=== PATIENT | male | born 1975 | race Caucasian/White ===

== ENCOUNTER 2024-05-17 12:07 | Emergency (ER) | payer BC ==
[2024-05-17 12:49] LABS: Absolute Basophils 0.1 K/uL (0-0.5); Absolute Eosinophils 0.1 K/uL (0-0.5); Absolute Lymphocytes (CBC) 1.4 K/uL (0.7-4.9); Absolute Monocytes 0.6 K/uL (0.1-1.3); Absolute Neutrophil 6.4 K/uL (1.8-8.0); Basophils % 0.9 % (0-1.3); Eosinophils % 1.4 % (0-4.4); Hematocrit 42.7 % (39.6-49.0); Hemoglobin 14.3 g/dL (13.6-17.9); Lymphocytes % 16.5 % (15.3-44.8); MCH 30.4 pg (27.0-35.0); MCHC 33.6 g/dL (32.0-36.0); MCV 90.5 fL (80-100); Monocytes % 7.3 % (3.3-12.3); Neutrophils % 73.9 % (41.7-73.7); Platelets 239 thou/uL (152-406); RBC Red Blood Cell Count 4.72 M/uL (4.33-5.43); Red Cell Distribution Width 13.8 % (12.1-15.2)
[2024-05-17 12:51] LABS: PT Prothrombin Time 11.3 SECONDS (9.4-12.5); Protime INR 1.01
[2024-05-17] MEDS ORDERED: MORPHINE 4 MG/ML SYR ONE (12:58)
[2024-05-17 13:03] LABS: Anion Gap 7.7 mEq/L (5.0-15.0); BUN Blood Urea Nitrogen 10 mg/dL (7-18); Bicarbonate 24 mEq/L (21-32); Glomerular Filtration Rate 107 ml/min (=/>90); Glucose Level 83 mg/dL (74-106); NT PRO-BNP 60 pg/mL (<125); Potassium 3.7 mEq/L (3.5-5.1); Sodium Level 140 mEq/L (136-145)
[2024-05-17 13:04] LABS: Troponin High Sensitivity < 3.0 pg/mL (<58.9)
--- NOTE | 2024-05-17 13:43 | RAD REPORT ---
EXAMINATION: ONE VIEW CHEST XR CLINICAL INDICATION: CHEST PAIN TECHNIQUE: Frontal chest projection is submitted. Examination is limited by patient positioning and t echnique. COMPARISON: No prior exam. FINDINGS: The lungs are well inflated and clear. The heart is normal in size. No displaced fractures identified . IMPRESSION: No acute intrathoracic abnormalities.
[2024-05-17] MEDS ORDERED: KETOROLAC 30 MG/ML INJ ONE (14:29)
[2024-05-17] MEDS ORDERED: methocarbamoL 500 MG TAB ONE (14:29)
--- NOTE | 2024-05-17 15:16 | ER ---
Nurse's Notes [facility] Name: Shawn Dallas Age: 48 yrs Sex: Male : 1975 Arrival Date: 05/17/2024 Time: 12:07 Bed 16 Private MD: Diagnosis: Chest pain, unspecified Presentation: 05/17 12:28 Chief complaint: Patient states: Chest pain to the center of chest that radiates to cm10 left side of chest onset 3 weeks ago. Pt describes the pain as pressure stabbing. Coronavirus screen: Client denies travel out of the [place] in the last 14 days. Ebola Screen: Patient denies travel to an Ebola-affected area in the 21 days before illness onset. No symptoms or risks identified at this time. Initial Sepsis Screen: Does the patient meet any 2 criteria? No. Patient's initial sepsis screen is negative. Does the patient have a suspected source of infection? No. Patient's initial sepsis screen is negative. Risk Assessment: Do you want to hurt yourself or someone else? Patient reports no desire to harm self or others. Onset of symptoms was May 17, 2024. 12:28 Method Of Arrival: Ambulatory cm10 12:28 Acuity: MINDY 2 cm10 Triage Assessment: 12:30 General: Appears in no apparent distress. comfortable, Behavior is calm, cooperative. cm10 Neuro: No deficits noted. Level of Consciousness is awake, alert, obeys commands, Oriented to person, place, time, situation, Appropriate for age. Historical: - Allergies: 12:29 No Known Allergies; cm10 - PMHx: 12:29 Myocardial infarction; cm10 - Immunization history:: Adult Immunizations up to date. - Infectious Disease History:: Denies. - Social history:: Smoking status: Patient reports the use of cigarette tobacco products, smokes one-half pack cigarettes per day. Screenin:30 [facility] ED Fall Risk Assessment (Adult) History of falling in the last 3 months, aa5 including since admission No falls in past 3 months (0 pts) Confusion or Disorientation No (0 pts) Intoxicated or Sedated No (0 pts) Impaired Gait No (0 pts) Mobility Assist Device Used No (0 pt) Altered Elimination No (0 pt) Score/Fall Risk Level 0 - 2 = Low Risk Oriented to surroundings, Maintained a safe environment, Educated pt \T\ family on fall prevention, incl call for assistance when getting out of bed. Abuse screen: Denies threats or abuse. Nutritional screening: No deficits noted. Tuberculosis screening: No symptoms or risk factors identified. Assessment: 12:30 General: Appears uncomfortable, Behavior is calm, cooperative. Pain: Complains of pain aa5 in mid-sternal area Pain radiates to anterior aspect of left upper chest Pain currently is 8 out of 10 on a pain scale. Quality of pain is described as pressure, stabbing, Pain began 3 weeks ago Is continuous. Neuro: Level of Consciousness is awake, alert, obeys commands, Oriented to person, place, time, situation. Cardiovascular: Reports chest pain, Intermittent lightheadedness Heart tones S1 S2 present Rhythm is sinus rhythm. Respiratory: Airway is patent Respiratory effort is even, unlabored, Respiratory pattern is regular, symmetrical. GI: No signs and/or symptoms were reported involving the gastrointestinal system. Patient currently denies nausea. : No signs and/or symptoms were reported regarding the genitourinary system. EENT: No signs and/or symptoms were reported regarding the EENT system. Derm: Skin is pink, warm \T\ dry. Musculoskeletal: Range of motion: intact in all extremities. 13:03 Reassessment: Patient is alert, oriented x 3, equal unlabored respirations, skin aa5 warm/dry/pink. 14:20 Reassessment: Patient is alert, oriented x 3, equal unlabored respirations, skin aa5 warm/dry/pink. Pt requesting more pain medication, MD was notified. . 15:10 Reassessment: MD at bedside . aa5 15:30 Reassessment: Patient is alert, oriented x 3, equal unlabored respirations, skin aa5 warm/dry/pink. Vital Signs: 12:28 BP 120 / 90; Pulse 72; Resp 16; Temp 97.9(O); Pulse Ox 96% on R/A; Weight 92.99 kg; cm10 Height 6 ft. 2 in. ; Pain 8/10; 14:00 BP 123 / 88; Pulse 65; Resp 16 S; Pulse Ox 96% on R/A; aa5 12:28 Body Mass Index 26.32 (92.99 kg, 187.96 cm) cm10 12:28 Pain Scale: Adult cm10 ED Course: 12:13 Patient arrived in ED. im 12:16 Rodolfo Fuller MD is Attending Physician. ec2 12:26 Meaghan Giordano, RN is Primary Nurse. aa5 12:29 Triage completed. cm10 12:30 Arm band placed on Patient placed in an exam room, on a stretcher, on quality assurance monitor, cm10 on pulse oximetry. EKG completed in triage. Results shown to MD. 12:30 Patient has correct armband on for positive identification. Placed in gown. Bed in low aa5 position. Call light in reach. Side rails up X2. Client placed on continuous cardiac and pulse oximetry monitoring. NIBP monitoring applied. night monitor on. Pulse ox on. NIBP on. 12:30 EKG done, by ED staff, reviewed by Rodolfo Fuller MD. cm10 12:34 Initial lab(s) drawn, by me, sent to lab. Inserted saline lock: 20 gauge in left aa5 forearm, using aseptic technique. Blood collected. Flushed with 10 mL NS. 12:43 No provider procedures requiring assistance completed. aa5 13:33 XRAY Chest (1 view) In Process Unspecified. EDMS 14:32 Repeat lab(s) drawn. by me, sent to lab. EKG done, by ED staff, reviewed by Rodolfo Fuller MD. 15:30 IV discontinued, intact, bleeding controlled, No redness/swelling at site. Pressure aa5 dressing applied. Administered Medications: 13:03 Drug: morphine IVP or IV 4 mg IVP once over 4 mins Route: IVP; Infused Over: 4 mins; aa5 Site: left forearm; 13:10 Follow up: Response: No adverse reaction ss 14:35 Drug: Ketorolac IVP 15 mg IVP once Route: IVP; Site: left forearm; ss 14:45 Follow up: Response: No adverse reaction aa5 14:35 Drug: Methocarbamol PO 500 mg PO once Route: PO; ss 14:45 Follow up: Response: No adverse reaction aa5 Medication: 12:43 VIS not applicable for this client. aa5 Outcome: 15:15 Discharge ordered by MD. ec2 15:30 Discharged to home ambulatory, with family, aa5 15:30 Condition: stable 15:30 Discharge instructions given to patient, Instructed on discharge instructions, follow up and referral plans. Demonstrated understanding of instructions, follow-up care, 15:32 Patient left the ED. ap3 Signatures: Dispatcher [employer] Meaghan Jones RN RN aa5 Jennie Pascual RN RN ss Prokisch, Amanda, RN RN ap3 Lakeisha Roth Clarissa, RN RN cm10 Rodolfo Fuller MD MD ec2 Corrections: (The following items were deleted from the chart) 12:30 12:29 PMHx: Pneumonia; cm10 cm10
--- NOTE | 2024-05-17 15:16 | EDPHYS ---
Physician Documentation [facility] Name: Shawn Dallas Age: 48 yrs Sex: Male : 1975 Arrival Date: 05/17/2024 Time: 12:07 Bed 16 Private MD: ED Physician Rodolfo Fuller HPI: 05/17 12:42 This 48 yrs old Male presents to ER via Ambulatory with complaints of Chest ec2 Pain. 12:42 Patient arrives today d/t concern for L sided chest pain. He reports that has been ec2 having left-sided chest pain ongoing for the past month. Patient reports that there is no specific alleviating or exacerbating factors. Reports no difficulty breathing. Reports history of conduction abnormality. Patient reports no other concerns. Reports that he takes aspirin for his pain. Historical: - Allergies: 12:29 No Known Allergies; cm10 - PMHx: 12:29 Myocardial infarction; cm10 - Immunization history:: Adult Immunizations up to date. - Infectious Disease History:: Denies. - Social history:: Smoking status: Patient reports the use of cigarette tobacco products, smokes one-half pack cigarettes per day. ROS: 12:44 Constitutional: as per hpi ec2 Exam: 12:30 ECG was reviewed by the Attending Physician. ec2 12:44 Constitutional: GEN: NAD Head: atraumatic Eyes: EOMI Ears: External ears are ec2 normal. CV: regular rate LUNGS: no respiratory distress ABD: non-distended SKIN: no evidence of rashes MSK: no evidence of trauma, reproducible chest wall TTP without deformities or crepitus appreciated. Vital Signs: 12:28 BP 120 / 90; Pulse 72; Resp 16; Temp 97.9(O); Pulse Ox 96% on R/A; Weight 92.99 kg; cm10 Height 6 ft. 2 in. ; Pain 8/10; 14:00 BP 123 / 88; Pulse 65; Resp 16 S; Pulse Ox 96% on R/A; aa5 12:28 Body Mass Index 26.32 (92.99 kg, 187.96 cm) cm10 12:28 Pain Scale: Adult cm10 MDM: 12:16 Patient medically screened. ec2 12:30 ED course: EKG independently reviewed and interpreted by me, shows normal sinus rhythm, ec2 rate 65, no acute ST segment elevations, intervals are nonactionable.. 12:44 Data reviewed: vital signs. ED course: Patient arrives today for evaluation of chest ec2 pain. Examination remarkable for well-appearing nontoxic individuals otherwise in no acute distress with a reassuring examination. Will obtain lab work, chest x-ray. EKG as above. Differential includes processes such as musculoskeletal pain, ACS, considered other process such as PE, dissection as well.. 13:11 ED course: Metabolic profile reassuring, CBC reassuring, BNP and coag profile ec2 nonactionable, troponin within normal ranges and undetectable. Will obtain repeat EKG and troponin at the 2-hour kamran. . 14:26 ED course: Repeat EKG independently reviewed and interpreted by me, shows normal sinus ec2 rhythm, rate 64, no acute ST segment elevations, intervals are nonconcerning.. 15:08 ED course: Repeat troponin with no significant change. . ec2 15:14 ED course: On reassessment, pt is well appearing and in no acute distress, will d/c to ec2 home, return precautions given. . 05/17 12:17 Order name: Basic Metabolic Panel; Complete Time: 13:11 ec2 05/17 12:17 Order name: CBC with Diff; Complete Time: 13:11 ec2 05/17 12:17 Order name: NT PRO-BNP; Complete Time: 13:11 ec2 05/17 12:17 Order name: PT-INR; Complete Time: 13:11 ec2 05/17 12:17 Order name: Troponin HS; Complete Time: 13:11 ec2 05/17 14:06 Order name: Troponin High Sensitivity; Complete Time: 15:08 ec2 05/17 12:17 Order name: XRAY Chest (1 view); Complete Time: 13:56 ec2 05/17 12:17 Order name: EKG; Complete Time: 12:17 ec2 05/17 12:17 Order name: Cardiac monitoring; Complete Time: 12:36 ec2 05/17 12:17 Order name: EKG - Nurse/Tech; Complete Time: 12:36 ec2 05/17 12:17 Order name: IV Saline Lock; Complete Time: 12:36 ec2 05/17 12:17 Order name: Labs collected and sent; Complete Time: 12:36 ec2 05/17 12:17 Order name: O2 Per Protocol; Complete Time: 12:36 ec2 05/17 12:17 Order name: O2 Sat Monitoring; Complete Time: 12:36 ec2 05/17 13:11 Order name: Misc. Order: repeat ekg/trop at 1415; Complete Time: 14:27 ec2 05/17 14:06 Order name: EKG - Nurse/Tech; Complete Time: 14:27 ec2 Administered Medications: 13:03 Drug: morphine IVP or IV 4 mg IVP once over 4 mins Route: IVP; Infused Over: 4 mins; aa5 Site: left forearm; 13:10 Follow up: Response: No adverse reaction ss 14:35 Drug: Ketorolac IVP 15 mg IVP once Route: IVP; Site: left forearm; ss 14:45 Follow up: Response: No adverse reaction aa5 14:35 Drug: Methocarbamol PO 500 mg PO once Route: PO; ss 14:45 Follow up: Response: No adverse reaction aa5 Disposition Summary: 05/17/24 15:15 Discharge Ordered Notes: Location: Home ec2 Condition: Stable ec2 Diagnosis - Chest pain, unspecified ec2 Followup: ec2 - With: Private Physician - When: - Reason: Re-evaluation by your physician Discharge Instructions: - Discharge Summary Sheet ec2 - Nonspecific Chest Pain, Adult, [id number] ec2 Forms: - Work release form ec2 - Medication Reconciliation Form ec2 - Antibiotic Education ec2 - Prescription Opioid Use ec2 - Patient Portal Instructions ec2 - Leadership Thank You Letter ec2 Signatures: Dispatcher [employer] Meaghna Jones RN RN aa5 Jennie Pascual RN RN Tena Cramer RN RN cm10 Rodolfo Fuller MD MD ec2 Corrections: (The following items were deleted from the chart) 12:17 12:17 BASIC METABOLIC PANEL+C.LAB.BRZ ordered. EDMS EDMS 12:17 12:17 CBC+H.LAB.BRZ ordered. EDMS EDMS 12:17 12:17 PROBNP+C.LAB.BRZ ordered. EDMS EDMS 12:17 12:17 PROTIME (+INR)+COAG.LAB.BRZ ordered. EDMS EDMS 12:17 12:17 Troponin High Sensitivity+C.LAB.BRZ ordered. EDMS EDMS 12:17 12:17 Chest Single View+RAD.RAD.BRZ ordered. EDMS EDMS 12 12:29 PMHx: Pneumonia; cm10 cm10
[2024-05-17 17:33] VITALS: TEMP 97.9; O2SAT 96
[2024-05-17 17:43] VITALS: BP 123/88
--- NOTE | 2024-05-20 12:01 | EKG ---
Test Date: 2024-05-17 Test Time: 14:22:26 Cyber Analyst: GINI MEASUREMENT RESULTS: Intervals: Rate: 64 WY: 170 QRSD: 108 QT: 398 QTc: 410 Walsh: P: 50 WY: 170 QRS: -28 T: 67 INTERPRETIVE STATEMENTS: Normal sinus rhythm with sinus arrhythmia Cannot rule out Anterior infarct, age undetermined Abnormal ECG Compared to ECG 05/17/2024 12:22:37 Myocardial infarct finding now present Left-axis deviation no longer present Electronically Signed On 05-20-24 11:55:44 CDT by Keith Nieto
--- NOTE | 2024-05-20 12:02 | EKG ---
Test Date: 2024-05-17 Test Time: 12:22:37 Russian Teacher: CHAPIS MEASUREMENT RESULTS: Intervals: Rate: 65 MA: 138 QRSD: 102 QT: 376 QTc: 391 [place]: P: 55 MA: 138 QRS: -33 T: 72 INTERPRETIVE STATEMENTS: Normal sinus rhythm Left axis deviation RSR' or QR pattern in V1 suggests right ventricular conduction delay Abnormal ECG No previous ECG available for comparison Electronically Signed On 05-20-24 11:56:27 CDT by Keith Nieto
== END 2024-05-17 15:32 | disposition home or self-care (01) ==
LOC: ER 12:07
DX: R07.9 Chest pain, unspecified (principal); I25.2 Old myocardial infarction; F17.210 Nicotine dependence, cigarettes, uncomplicated; Z79.82 Long term (current) use of aspirin
CPT/HCPCS: 36415; 71045; 80048; 83880; 84484; 85025; 85610; 93005; 96374; 96375; 99285